=== PATIENT | female | born 1970 | race Caucasian/White ===

== ENCOUNTER 2019-01-22 13:44 | Outpatient (REF) | payer OTHER, SELFPAY ==
[2019-01-22 20:34] LABS: Anion Gap 9.8 mmol/L (3-11); BUN 15 mg/dL (7-18); CO2 24.2 mmol/L (21.0-32.0); CREATININE 0.74 mg/dL (0.55-1.02); Calcium 8.4 mg/dL (8.5-10.1); Calculated LDL 73 mg/dL; Chloride 106 mmol/L (98-107); Cholesterol 154 mg/dL (50-200); Glucose 96 mg/dL (70-100); HDL Cholesterol 44 mg/dL (40-60); Potassium 4.2 mmol/L (3.5-5.1); Sodium 140 mmol/L (136-145); Triglyceride 185 mg/dL (30-150)
== END 2019-01-22 14:04 ==
LOC: NCHCN 13:44
PROVIDERS: PCP Specialist/Technologist Athletic Trainer; Visit Provider Specialist/Technologist Athletic Trainer
DX: Z00.00 Encounter for general adult medical examination without abnormal findings (principal); I10 Essential (primary) hypertension
CPT/HCPCS: 80048; 80061; 83721

== ENCOUNTER 2019-04-12 17:05 | Emergency (ER) | payer OTHER, SELFPAY ==
[2019-04-12 17:16] VITALS: BP 113/58; PULSE 64; RESP 18; TEMP 36.7; O2SAT 95
--- NOTE | 2019-04-12 17:34 | DI.RAD_ITS ---
EXAM: XR KNEE LT 4V AP,LAT,KENYON,PAT INDICATION: posterior pain. COMPARISON: No exams were available for comparison TECHNIQUE: 2D digital imaging was performed. FINDINGS: Five views were obtained. There is a prominent enthesophyte of the superior pole of the patella. Sl ight marginal osteophyte formation noted at multiple sites. No evidence of acute fracture. IMPRESSION:
--- NOTE | 2019-04-12 17:34 | ED.GENADUL_ITS ---
Discharge Plan Disposition Patient Disposition: HOME Condition: Improving Discharge Details Chief Complaint: Orthopedic Clinical Impression: Knee strain Primary Care Provider: Nico Lord ED Provider: Omer Bowers Home Meds and New Rx's Prescriptions: No Action zolpidem [Ambien] 10 MG tablet 10 mg PO 1/2 TO 1 TAB QHS PRN RF: 0 cetirizine [Zyrtec] 10 MG tablet,chewable 10 mg PO DAILY RF: 0 lamotrigine 200 MG tablet 200 mg PO BID Qty: 180 RF: 3 lisinopril 5 MG tablet 10 mg PO DAILY RF: 0 naproxen sodium [Aleve] 220 MG capsule 220 mg PO PRN RF: 0 Discharge Instructions Instructions: Swollen Knee Joint (ED) Additional Instructions: Remove Tico bandage at bedtime. Wear Tico bandage daily for 5 to 7 days time. Apply ice to reduce discomfort. You may use ibuprofen/naproxen as needed for discomfort Follow-up in clinic on Friday for recheck and less completely improved. Return at any time for reevaluation. Medical Decision Making 48-year female presents with the insidious onset of aching left posterior knee pain over 1 week's time. Says it was worse with walking, improved with rest. Denies chest pain or shortness of breath. No swelling. No prolonged immobilization. Her exam is reassuring and notable only for mild tenderness in the posterior knee. No laxity or instability. No effusion appreciated. Referred for x-ray which does reveal slight marginal osteophyte formation noted at multiple sites. Discussed with patient that is likely a mild arthritic/strain of the knee. We will treat with compression with Tico bandage. She has a follow-up this coming Friday for recheck in the office. If not improving would consider outpatient ultrasound. Stable for discharge at this time. HPI General Mode of arrival: ambulatory . Date/Time Provider Initiated Documentation: 04/12/19 17:26 . Limitations to Documentation: no limitations . Information obtained by: patient . History of Present Illness 48 year old F presents to the emergency department with the chief complaint of Left knee pain for 1 week, described as moderate, Quality is described as dull, and is localized to the left and lower extremity. Rest improves symptom(s), Movement worsens symptoms . Patient notes no other symptoms.. Patient did receive the following treatments prior to arrival, none Related Data Home Medications Medication Instructions Recorded Confirmed cetirizine [Zyrtec] 10 mg PO DAILY tab-cap 05/17/14 04/12/19 zolpidem [Ambien] 10 mg PO 1/2 TO 1 TAB QHS PRN 05/17/14 04/12/19 tab-cap lamotrigine 200 mg PO BID #180 tab-cap 05/23/14 04/12/19 lisinopril 10 mg PO DAILY tab-cap 04/17/16 04/12/19 naproxen sodium [Aleve] 220 mg PO PRN 04/17/16 04/12/19 Allergies Allergy/AdvReac Type Severity Reaction Status Date / Time No Known Allergies Allergy Unverified 04/12/19 17:23 General Stated Complaint: Orthopedic HAL: 4 Review of Systems Review of Systems Narrative: 6 systems reviewed and otherwise negative [facility] Social History Smoking/Tobacco Use Status: Former Tobacco Use Alcohol Intake: current Alcohol Intake frequency: holidays/special occasions only Drug use: Occasionally Substance use type: marijuana Household members: children Number of Children: 1 Seatbelt use: always Do you feel safe at home: Yes Do you feel safe in your relationship?: Yes History History 2 Para Hx # Term Pregnancies 1 Multiple births Hx # Pregnancies Ectopic pregnancies AB induced Hx Number of Living Children AB spontaneous Exam Narrative Exam Narrative: GEN: awake, alert, oriented 3. Pleasant, well groomed, interactive. HEAD: Normocephalic, atraumatic ENT: Mucous membranes moist, oropharynx unremarkable, External ear exam unrem arkable EYES: PERRL, EOMI EXT: Full ROM, mild tenderness left posterior knee. Full range of motion, motor 5 out of 5, sensation intact throughout. No mass or cords appreciated Neuro: Grossly normal neurologic exam, conversant, interactive. Psych: Speech fluent, thoughts congruent, affect normal Course Vital Signs Vital signs: Vital Signs Temperature 36.7 C 04/12/19 17:16 Pulse 64 04/12/19 17:16 Respiratory Rate 18 04/12/19 17:16 Blood Pressure 113/58 L 04/12/19 17:16 Pulse Oximetry 95 04/12/19 17:16 Temperature 36.7 C 04/12/19 17:16 Temperature Source Skin 04/12/19 17:16 Pulse 64 04/12/19 17:16 Respiratory Rate 18 04/12/19 17:16 Respiratory Effort 04/12/19 17:24 Blood Pressure 113/58 L 04/12/19 17:16 Blood Pressure Position Sitting 04/12/19 17:16 Pulse Oximetry 95 04/12/19 17:16 Oxygen Delivery Method Room Air 04/12/19 17:16 Oxygen Flow Rate 0 04/12/19 17:16 Pain Level 6 04/12/19 17:16 Comment pain worse after sitting for a while 04/12/19 17:16
[2019-04-12 18:24] VITALS: BP 113/58; PULSE 64; RESP 18; TEMP 36.7; O2SAT 95
== END 2019-04-12 18:25 | disposition home or self-care (01) ==
PROVIDERS: Emergency Provider Emergency Medicine; PCP Specialist/Technologist Athletic Trainer
DX: S86.212A Strain of muscle(s) and tendon(s) of anterior muscle group at lower leg level, left leg, initial encounter (principal); X58.XXXA Exposure to other specified factors, initial encounter
CPT/HCPCS: 81025; 99283; 73564; 99282

== ENCOUNTER 2019-04-26 10:11 | Emergency (ER) | payer OTHER, SELFPAY ==
[2019-04-26 10:17] VITALS: BP 121/76; PULSE 89; RESP 18; TEMP 36.6; O2SAT 99
--- NOTE | 2019-04-26 10:34 | ED.GENADUL_ITS ---
Discharge Plan Disposition Patient Disposition: HOME Condition: Stable Discharge Details Chief Complaint: Orthopedic Clinical Impression: Strain of left knee Primary Care Provider: Nico Lord ED Provider: Braeden Amaya Home Meds and New Rx's Prescriptions: New prednisone 20 mg tablet 60 mg PO DAILY Qty: 15 RF: 0 Continued zolpidem [Ambien] 10 MG tablet 10 mg PO 1/2 TO 1 TAB QHS PRN RF: 0 cetirizine [Zyrtec] 10 MG tablet,chewable 10 mg PO DAILY RF: 0 lamotrigine 200 MG tablet 200 mg PO BID Qty: 180 RF: 3 lisinopril 5 MG tablet 10 mg PO DAILY RF: 0 naproxen sodium [Aleve] 220 MG capsule 220 mg PO PRN RF: 0 Discharge Instructions Additional Instructions: take 1000mg tylenol and 600mg ibuprofen every 6 hours for pain as needed if you develop fevers, or the joint becomes red and warm to touch return to the emergency department call the orthopedics office to arrange for an appointment Referrals: Khoi France MD [ [facility] STAFF PHYSICIAN] - Medical Decision Making 48 yo female comes in with continued non traumatic left knee pain. Was seen here earlier this month with negative xays and is going to be getting an MRI and Pt in the coming weeks. She comes in with continued pain, denies fevers or rashes. She has pain over the anterior and medial knee without any swelling or warmth, no findings to suggest septic joint.No calf pain or leg swelling so doubt dvt. She does have full rom and can bare weight though with pain. Given no trauma do not feel xrays indicated as unlikely fracture. could be arthritis vs strain, will have her start steroids and she has a knee brace coming tomorrow per pt. Will also refer to ortho for eval and she was given return precautions for se ptic joint Differential Diagnosis Differential Diagnosis: strain, arthritis, bursitis HPI General Mode of arrival: ambulatory . Date/Time Provider Initiated Documentation: 04/26/19 10:13 . Limitations to Documentation: no limitations . Information obtained by: patient . History of Present Illness 48 year old F presents to the emergency department with the chief complaint of left knee pain, described as moderate, Quality is described as aching, and is localized to the left and lower extremity. Patient reports no radiation. Patient started experiencing this week(s) (2) and it has been constant. Patient notes no other symptoms.. Related Data Home Medications Medication Instructions Recorded Confirmed cetirizine [Zyrtec] 10 mg PO DAILY tab-cap 05/17/14 04/26/19 zolpidem [Ambien] 10 mg PO 1/2 TO 1 TAB QHS PRN 05/17/14 04/26/19 tab-cap lamotrigine 200 mg PO BID #180 tab-cap 05/23/14 04/26/19 lisinopril 10 mg PO DAILY tab-cap 04/17/16 04/26/19 naproxen sodium [Aleve] 220 mg PO PRN 04/17/16 04/26/19 prednisone 60 mg PO DAILY #15 tab 04/26/19 Previous Rx's Medication Instructions Recorded prednisone 60 mg PO DAILY #15 tab 04/26/19 Allergies Allergy/AdvReac Type Severity Reaction Status Date / Time No Known Allergies Allergy Unverified 04/26/19 10:26 General Stated Complaint: Orthopedic HAL: 4 Review of Systems Review of Systems ROS Unobtainable: All systems reviewed & are unremarkable except as noted in HPI and below Constitutional Constitutional: Denies chills and Denies fever(s) Cardiovascular Cardiovascular: Denies chest pain and Denies dyspnea Respiratory Respiratory: Denies cough and Denies dyspnea Gastrointestinal Gastrointestinal: Denies abdominal pain, Denies nausea and Denies vomiting Musculoskeletal Musculoskeletal: Denies joint swelling Psychiatric Psychiatric: Denies depression Allergic/Immunologic Allergic/Immunologic: Denies urticaria PFSH Social History Smoking/Tobacco Use Status: Former Tobacco Use Alcohol Intake: current Alcohol Intake frequency: holidays/special occasions only Drug use: Occasionally Substance use type: marijuana Household members: children Number of Children: 1 Seatbelt use: always Do you feel safe at home: Yes Do you feel safe in your relationship?: Yes History History 2 Para Hx # Term Pregnancies 1 Multiple births Hx # Pregnancies Ectopic pregnancies AB induced Hx Number of Living Children AB spontaneous Exam Const General: no acute distress Orientation: alert HENMT Head: normal to inspection Ears: external ears normal General nose exam: external nose normal Mouth: moist mucous membranes Eyes General: appearance normal, both eyes and all related structures Neck Neck: normal visual inspection Resp Effort & Inspection: normal respiratory effort and able to speak in complete sentences Cardio Rate: regular rate Skin General skin exam: no rashes or lesions noted Neuro General: alert and oriented x3 Extrem General: normal to inspection Psych Mental Status: mental status grossly normal Course Vital Signs Vital signs: Vital Signs Temperature 36.6 C 04/26/19 10:17 Pulse 89 04/26/19 10:17 Respiratory Rate 18 04/26/19 10:17 Blood Pressure 121/76 04/26/19 10:17 Pulse Oximetry 99 04/26/19 10:17 Temperature 36.6 C 04/26/19 10:17 Pulse 89 04/26/19 10:17 Respiratory Rate 18 04/26/19 10:17 Respiratory Effort Non-Labored 04/26/19 10:17 Blood Pressure 121/76 04/26/19 10:17 Pulse Oximetry 99 04/26/19 10:17 Oxygen Delivery Method Room Air 04/26/19 10:17 Oxygen Flow Rate 0 04/26/19 10:17 Pain Level 9 04/26/19 10:29 Comment 04/26/19 10:17
[2019-04-26] MEDS: predniSONE 20 MG TAB 60 MG PO (10:38)
== END 2019-04-26 10:56 | disposition home or self-care (01) ==
LOC: ER 10:39
PROVIDERS: Emergency Provider Emergency Medicine; PCP Specialist/Technologist Athletic Trainer
DX: S76.912A Strain of unspecified muscles, fascia and tendons at thigh level, left thigh, initial encounter (principal); X58.XXXA Exposure to other specified factors, initial encounter
CPT/HCPCS: 99282; J7512

== ENCOUNTER → 2019-06-24 12:41 | Outpatient (CLI) | payer OTHER, SELFPAY ==
--- NOTE | 2019-06-24 14:05 | DI.RAD_ITS ---
EXAM: XR KNEE RT 3V AP,LAT,KENYON CLINICAL HISTORY: RT KNEE PAIN, M25.561 TECHNIQUE: COMPARISON: XR KNEE LT 4V AP,LAT,KENYON,PAT from 04/12/2019 FINDINGS: Four views were obtained. the cartilaginous joint spaces of tibiofemoral joints appear fairly well maintained. There are marginal osteophytes most prominent involving the patellofemoral joint. No ot her significant bony abnormality seen. IMPRESSION:
== END ==
PROVIDERS: PCP Specialist/Technologist Athletic Trainer; Visit Provider Specialist/Technologist Athletic Trainer
DX: M25.561 Pain in right knee (principal); M25.761 Osteophyte, right knee
CPT/HCPCS: 73562

== ENCOUNTER 2020-10-23 15:50 | Outpatient (REF) | payer OTHER, SELFPAY ==
[2020-10-23 19:16] LABS: Hemoglobin A1C 5.4 % (<5.7)
== END 2020-10-23 15:51 | disposition home or self-care (01) ==
LOC: NCHCN 15:50
PROVIDERS: PCP Specialist/Technologist Athletic Trainer; Visit Provider Nurse Practitioner Family
DX: R73.03 Prediabetes (principal)
CPT/HCPCS: 83036

== ENCOUNTER 2021-01-11 14:53 | Outpatient (REF) | payer OTHER, SELFPAY ==
[2021-01-11 19:33] LABS: Anion Gap 9.3 mmol/L (3-11); BUN 11 mg/dL (7-18); CO2 26.7 mmol/L (21.0-32.0); CREATININE 0.9 mg/dL (0.55-1.02); Calcium 8.9 mg/dL (8.5-10.1); Chloride 105 mmol/L (98-107); Glucose 86 mg/dL (74-106); Potassium 4.6 mmol/L (3.5-5.1); Sodium 141 mmol/L (136-145)
[2021-01-11 20:00] LABS: Vitamin D 25 Total 12.6 ng/mL (30-100)
[2021-01-15 13:02] LABS: Hepatitis C Ab w Rflx HCV PCR Negative (Negative)
[2021-01-15 14:07] LABS: HIV-1/2 Ag & Ab Screen Negative (Negative)
== END 2021-01-11 14:54 | disposition home or self-care (01) ==
LOC: NCHCN 14:53
PROVIDERS: PCP Specialist/Technologist Athletic Trainer; Visit Provider Nurse Practitioner Family
DX: Z00.00 Encounter for general adult medical examination without abnormal findings (principal); Z51.81 Encounter for therapeutic drug level monitoring; I10 Essential (primary) hypertension; F32.9 Major depressive disorder, single episode, unspecified; Z68.42 Body mass index [BMI] 45.0-49.9, adult
CPT/HCPCS: 80048; 82306; 86803; 87389

== ENCOUNTER 2021-02-16 11:21 | Outpatient (REF) | payer OTHER, SELFPAY ==
--- NOTE | 2021-02-16 10:30 | PAPFT_PTH ---
PATIENT: Sarina Gregory LOC: [facility] U#:[id number] AGE/SX: 50/F ROOM: RE02/16/[address]: Dora Mckeon : 1970 BED: DIS: 02/16/2021 SPEC #: [id number] RECD: 02/16/21 16:47 STATUS: ORAL REQ #: [id number] SEPIDEH: 02/16/21 10:[address]: Dora Mckeon DEPT: [facility] Cytology RECD BY: Cuca Dixon ENTERED: 02/16/21 16:47 SP TYPE: PAPFT OTHR DR: Nico Lord Tissues: 1 - CX/ENDOCX FOR PAP SMEARS Procedures: PAP THIN PREP/UVM Screening Comments: [id number] (CHLAMYDIA/GC) (UNSATISFACTORY FOR EVALUATION)
[2021-02-19 15:33] LABS: Chlamydia Result Negative (Negative); GC Result Negative (Negative)
== END 2021-02-16 11:22 | disposition home or self-care (01) ==
LOC: LBN 11:21
PROVIDERS: PCP Specialist/Technologist Athletic Trainer; Visit Provider Nurse Practitioner Family
DX: Z11.3 Encounter for screening for infections with a predominantly sexual mode of transmission (principal); Z12.4 Encounter for screening for malignant neoplasm of cervix; R87.615 Unsatisfactory cytologic smear of cervix; Z01.419 Encounter for gynecological examination (general) (routine) without abnormal findings
CPT/HCPCS: 87491; 87591; 88142

== ENCOUNTER 2021-02-20 02:20 | Outpatient (CLI) | payer OTHER, SELFPAY ==
--- NOTE | 2021-02-20 | DI.US_ITS ---
Exam(s) US BREAST RT LIMITED MG MAMMO DIAGNOSTIC BI EXAM: MG MAMMO DIAGNOSTIC BI CLINICAL HISTORY: DIAGNOSTIC, RT BREAST LUMP, N63.0 TECHNIQUE: Mammograms were interpreted according to the usual protocol including computer analysis w ith CAD system, tomosynthesis and C-view imaging. COMPARISON: FINDINGS: Bilateral mammogram right breast ultrasound are interpreted conjunction. The patient reports questio n of a palpable area of abnormality in the lower inner quadrant of the right breast. The breasts are heterogeneously dense. No dominant mass or clumped microcalcification is identified in either breast. The current examination is compared with previous mammogram of January 2018 and there has been no gross interval change in appearance since that time. Breast ultrasound of the lower inner quadrant of the right breast shows no evidence of a mass or cyst . IMPRESSION: No specific evidence of malignancy at this time. Routine screening examinations are suggested at yea rly intervals in this age group according to the ACS ACR guidelines. BI-RADS Category 1 - Negative Breast Density - Category C - Heterogeneously dense
== END 2021-02-20 02:40 ==
PROVIDERS: PCP Specialist/Technologist Athletic Trainer; Visit Provider Nurse Practitioner Family
DX: N63.10 Unspecified lump in the right breast, unspecified quadrant (principal); R92.8 Other abnormal and inconclusive findings on diagnostic imaging of breast
CPT/HCPCS: 76642; 77062; 77066; G0279

== ENCOUNTER 2021-05-17 18:17 | Outpatient (REF) | payer OTHER, SELFPAY ==
--- NOTE | 2021-05-17 15:45 | PAPFT_PTH ---
PATIENT: Sarina Gregory LOC: [facility]#:[id number] AGE/SX: 50/F ROOM: RE05/17/[address]: Dora Mckeon : 1970 BED: DIS: 05/17/2021 SPEC #: [id number] RECD: 05/18/21 12:58 STATUS: ORAL REQ #: [id number] SEPIDEH: 05/17/21 15:[address]: Dora Mckeon DEPT: [facility] Cytology RECD BY: Cuca Dixon ENTERED: 05/18/21 12:58 SP TYPE: PAPFT OTHR DR: Nico Lord Tissues: 1 - CX/ENDOCX FOR PAP SMEARS Procedures: PAP THIN PREP/UVM Screening HPV DNA PROBE Comments: [id number]
== END 2021-05-17 18:18 | disposition home or self-care (01) ==
LOC: NCHCN 18:17
PROVIDERS: PCP Specialist/Technologist Athletic Trainer; Visit Provider Nurse Practitioner Family
DX: Z12.4 Encounter for screening for malignant neoplasm of cervix (principal); Z11.51 Encounter for screening for human papillomavirus (HPV)
CPT/HCPCS: 88142; 87624

== ENCOUNTER 2021-05-25 14:59 | Outpatient (REF) | payer OTHER, SELFPAY ==
[2021-05-26 13:09] LABS: Lamotrigine 2.9 mcg/mL (2.5 - 15.0)
[2021-05-28 02:53] LABS: Vitamin D 25 Total 46.2 ng/mL (30-100)
== END 2021-05-25 15:00 | disposition home or self-care (01) ==
LOC: NCHCN 14:59
PROVIDERS: PCP Specialist/Technologist Athletic Trainer; Visit Provider Nurse Practitioner Family
DX: R56.9 Unspecified convulsions (principal); E55.9 Vitamin D deficiency, unspecified; Z51.81 Encounter for therapeutic drug level monitoring
CPT/HCPCS: 80175; 82306

== ENCOUNTER 2023-02-20 17:41 | Outpatient (REF) | payer OTHER, SELFPAY ==
[2023-02-20 19:52] LABS: Bacteria Few HPF (Negative); C & S Indicated? C&S Done As Ordered; Casts Negative LPF (Negative); Crystals Moderate Amorphous HPF (Negative); Epithelial Cells Few HPF (Negative); Mucus Negative (Negative)
== END 2023-02-20 17:42 | disposition home or self-care (01) ==
LOC: NCHCN 17:41
PROVIDERS: PCP Nurse Practitioner Family; Visit Provider Nurse Practitioner Family
DX: N89.8 Other specified noninflammatory disorders of vagina (principal); R31.9 Hematuria, unspecified
CPT/HCPCS: 81015; 87086; 87480; 87510; 87660

== ENCOUNTER 2023-05-22 11:41 | Outpatient (REF) | payer OTHER, SELFPAY | END 2023-05-22 11:42 | disposition home or self-care (01) | LOC: LBN 11:41 | PROVIDERS: PCP Nurse Practitioner Family; Visit Provider Nurse Practitioner Family | DX: N89.8 Other specified noninflammatory disorders of vagina (principal) | CPT/HCPCS: 87480; 87510; 87660 ==

== ENCOUNTER 2023-06-13 16:05 | Outpatient (REF) | payer OTHER, SELFPAY ==
[2023-06-13 15:08] LABS: Abs Immature Grans 0.04 10^3/uL (0.0-0.06); Absolute Basophil Count 0.04 10^3/uL (0.0-0.2); Absolute Lymphocyte Count 2.64 10^3/uL (1.2-3.4); Absolute Monocyte Count 0.85 10^3/uL (0.1-0.8); Absolute Neutrophil Count 5.45 10^3/uL (1.2-6.7); Basophils % 0.4; Eosinophils % 1.1; HCT 41.3 % (36.0-46.0); HGB 13.8 g/dL (11.2-15.7); Immature Grans % 0.4; Lymphocytes % 28.9; MCH 30.7 pg (27.0-33.0); MCHC 33.4 % (32.0-36.0); MCV 92 fL (80-95); MPV 9.9 fL (8.0-11.0); Monocytes % 9.3; Neutrophils % 59.9; Platelet Count 347 10^3/uL (130-400); RDW 12.3 % (11.7-14.6); RDW-SD 41.4 fL; WBC 9.12 10^3/uL (4.4-10.8)
[2023-06-13 22:33] LABS: HIV-1/2 Ag & Ab Screen Negative (Negative)
[2023-06-14 00:30] LABS: Hepatitis C Ab w Rflx HCV PCR Negative (Negative)
[2023-06-14 14:14] LABS: Chlamydia Result Negative (Negative); GC Result Negative (Negative)
[2023-06-16 11:29] LABS: Syphilis Serology (RPR) Negative (Negative)
== END 2023-06-13 16:06 | disposition home or self-care (01) ==
LOC: NCHCN 16:05
PROVIDERS: PCP Nurse Practitioner Family; Visit Provider Nurse Practitioner Family
DX: Z20.2 Contact with and (suspected) exposure to infections with a predominantly sexual mode of transmission (principal); N92.0 Excessive and frequent menstruation with regular cycle
CPT/HCPCS: 86803; 87389; 87491; 87591; 85025; 86592; 87480; 87510; 87660

== ENCOUNTER 2023-09-01 04:06 | Outpatient (CLI) | payer OTHER, SELFPAY ==
[2023-09-01 13:48] LABS: HCT 39.6 % (36.0-46.0); HGB 13.8 g/dL (11.2-15.7); MCH 31.6 pg (27.0-33.0); MCHC 34.8 % (32.0-36.0); MCV 91 fL (80-95); MPV 9.8 fL (8.0-11.0); Platelet Count 298 10^3/uL (130-400); RBC 4.37 10^6/uL (3.93-5.22); RDW 12.6 % (11.7-14.6); RDW-SD 41.7 fL; WBC 10.09 10^3/uL (4.4-10.8)
== END 2023-09-01 04:07 | disposition home or self-care (01) ==
LOC: LBO 04:06
PROVIDERS: PCP Nurse Practitioner Family; Visit Provider Obstetrics & Gynecology
DX: Z01.818 Encounter for other preprocedural examination (principal)
CPT/HCPCS: 36415; 85027; 86850; 86900; 86901

== ENCOUNTER 2023-09-03 08:29 | Day surgery (SDC) | payer OTHER, SELFPAY ==
[2023-09-03] VITALS (8 sets, daily range): BP systolic 106–133; BP diastolic 49–75; PULSE 76–94; RESP 17–24; TEMP 36.2–36.7; O2SAT 93–96; BMI 51.0
--- NOTE | 2023-09-03 09:16 | W.ANESPRE ---
General Info Date of Service Date Performed: 09/03/23 Height: 5 ft 3.5 in Weight: 132.903 kg Body Mass Index (BMI): 51.0 Surgical Procedure: Operation Date: 09/03/23 09:10 Proposed Procedure Side Surgeon p Dilation & Curettage with Hysteroscopy, Myosure Annie Fields DO Meds Allergies and Home Medications Allergies Allergy/AdvReac Type Severity Reaction Status Date / Time No Known Allergies Allergy Verified 09/03/23 09:14 Home Medication Medication Instructions Recorded cetirizine 10 mg chewable tablet 10 mg PO DAILY 05/17/14 (Zyrtec) lamotrigine 200 mg tablet 200 mg PO BID #180 tab-caps 05/23/14 lisinopril 5 mg tablet 10 mg PO DAILY 04/17/16 naproxen sodium 220 mg capsule 220 mg PO PRN 04/17/16 (Aleve) mupirocin 2 % topical ointment 1 applic topical BID 02/06/21 cholecalciferol (vitamin D3) 25 25 mcg PO DAILY 08/12/22 mcg (1,000 unit) capsule [id number] 3.5 4 drp otic (ear) TID 10 days #10 mL 09/17/22 mg-10,000 unit/mL-1 % ear drops,susp Current Visit Medications: Current Medications Generic Name Dose Route Start Last Admin Trade Name Freq PRN Reason Stop Dose Admin Ringer's Solution 1,000 mls @ 125 mls/hr 09/03/23 06:00 IV 09/03/23 23:59 INFUSION JEANETTE IV Miscellaneous Supplies 1 each 09/03/23 06:00 Iv Access IV 09/03/23 23:59 DIRECTED JEANETTE Sodium Chloride 0 ml 09/03/23 06:00 Normal Saline Flush 10 Ml Syr IV 09/03/23 23:59 PRN PRN Sodium Chloride 0 ml 09/03/23 06:00 Normal Saline 10 Ml Vial IJ 09/03/23 23:59 DIRECTED PRN Sterile Water 0 ml 09/03/23 06:00 Water,Injection,Sterile 10 Ml Vial IJ 09/03/23 23:59 DIRECTED PRN PFSH Active Problems Active Problems: Problem Status Onset Code Fluid in endometrial cavity N85.9 Morbid obesity E66.01 Retraction pocket of tympanic membrane of right ear H73.891 Otitis externa of right ear H60.91 Screening for colon cancer Z12.11 Seizure disorder G40.909 Medical History Medical History (Updated 09/01/23 @ 15:29 by Annie Fields DO) Epilepsy Medication controlled f/u with PCP. Dx 2006. Last seizure: ~5 years Preventative health care Screening mammogram for breast cancer Vitamin D deficiency Heavy menstrual bleeding Screening for cervical cancer History of COVID-19 Shoulder pain, right Skin lesion of face Chronic pain of both ears Adult BMI 45.0-49.9 kg/sq m History of depression Allergic rhinitis Cystocele Hypertension Medication monitoring encounter Urinary incontinence Bladder prolapse Sleep apnea History of prediabetes Cyst Knee pain, right Sleep disorder Rash, skin Irregular menstruation Tender nose Breast lump Impacted cerumen of right ear Internal derangement of left knee Stiffness of left knee Chondromalacia patellae of left knee Abnormal uterine bleeding Tobacco Smoking/Tobacco Use Status: Current-Occasional Tobacco Type: cigarettes Alcohol Alcohol Intake: current Alcohol intake frequency: holidays/special occasions only Substance Use Substance use: Occasionally Substance use type: marijuana Prental History History 2 Para Hx # Term Pregnancies 1 Multiple births Hx # Pregnancies Ectopic pregnancies AB induced Hx Number of Living Children AB spontaneous Vital Signs and Lab Results Lab Results Blood Type / Crossmatch: Patient ABO/Rh O Positive 09/01/23 Antibody Screen NEGATIVE 09/01/23 Complete Blood Count: White Blood Count 10.09 10^3/uL (4.4-10.8) 09/01/23 13:37 Red Blood Count 4.37 10^6/uL (3.93-5.22) 09/01/23 13:37 Hemoglobin 13.8 g/dL (11.2-15.7) 09/01/23 13:37 Hematocrit 39.6 % (36.0-46.0) 09/01/23 13:37 Platelet Count 298 10^3/uL (130-400) 09/01/23 13:37 Complete Metabolic Panel: No Data to Display Liver Function Panel: No Data to Display Coagulation Panel: No Data to Display Cardiac Panel: No Data to Display Arterial Blood Gas: No Data to Display Venous Blood Gas: No Data to Display Pancreas Panel: No Data to Display Thyroid Panel: No Data to Display Infectious Disease: No Data to Display Blood Cultures: No Data to Display Toxicology Panel: No Data to Display Panel: No Data to Display Anesthesia Assessment and Plan Anesthesia History Personal History: No History of General Anesthesia Family History: No Family History of Anesthesia Complications Exercise Tolerance Exercise Tolerance: Metabolic Equivalents>4 Pertinent Negatives Pertinent Negatives: No Symptoms of GERD, No Major Cardiovascular Symptoms or Complaints, No Major Pulmonary Symptoms or Complaints and No History of CVA/TIA Cardiac & Pulmonary Exam Cardiac Exam: Normal S1/S2 Heart Sounds Pulmonary Exam: Clear Bilateral Breath Sounds Implantable Cardiac Device Does patient have a Pacemaker or an ICD?: No Airway Exam Known Difficult Airway: No Mallampati Class: 3 Mouth Opening: Normal (> 3cm) Thyromental Distance: Less than 3 cm Neck Range of Motion: Full ROM Neck Circumference: Thick Teeth Condition: Normal Dentition ASA Classification ASA Score: ASA 3 Emergency Case?: No NPO Status NPO Status: NPO Clears >2 hours, Solids >8 hours Status Status: Negative HCG Anesthesia Plan Resuscitation Status: Full Code Anesthesia Technique: General Anesthesia Airway Planned: Natural Airway Monitors Used: Standard Monitors Preoperative Comments:: pt reports not feeling hungry this am but denies any other s/s of reflux and denies s/s of reflux this am
[2023-09-03] MEDS: Lactated Ringers 1,000 ML 125 ML IV (09:18)
--- NOTE | 2023-09-03 10:28 | ENDO_PTH ---
PATIENT: Sarina Gregory LOC: [facility] U#:[id number] AGE/SX: 53/F ROOM: RE09/03/[address]: Annie Fields DO : 1970 BED: DIS: 09/03/2023 SPEC #: [id number] RECD: 09/03/23 12:49 STATUS: ORAL RE #: [id number] SEPIDEH: 09/03/23 10:[address]: Annie Fields DEPT: Surgical Specimen RECD BY: Cuca Dixon ENTERED: 09/03/23 12:50 SP TYPE: Endo OTHR DR: Dora Mckeon Tissues: 1 - ENDOCERVICAL BX/CURRETTE 2 - ENDOMETRIUM BX/CURRETTE Procedures: GROSS AND MICRO LEVEL 4 IMMUNOPEROXIDASE STAIN Comments: [id number]
[2023-09-03] MEDS: Silver Nitrate Stick 1 EACH (10:30)
--- NOTE | 2023-09-03 10:43 | ROE_ITS ---
Date of service: 09/03/23 Time of Service: 10:43 Operative Note Operative Note DATE OF PROCEDURE: 09/03/23 PRE-OP DIAGNOSIS: Thickened endometrium, endometrial fluid collection POST-OP DIAGNOSIS: same ([place] endometrium and marked mucus within the endometrial canal) PROCEDURE: Hysteroscopy with dilation and curettage, fractional. SURGEON: Annie Fields ANESTHESIA TYPE: General LMA/ETT Refer to Anesthesia Record ESTIMATED BLOOD LOSS: 20 PATHOLOGY: other (1. Endocervical curettage 2. Endometrial curettage) COMPLICATIONS: None Patient was transported to: PACU Indications: Thickened endometrium, heavy menstrual bleeding, endometrial fluid collection. Findings: Copious mucoid fluid collection within the endometrium. Diffuse, plush, irregular endometrial lining. Procedure Description: After full informed consent was obtained, patient was taken the operating suite with an IV running. She was placed in the dorsal supine position after endotracheal intubation performed for the administration of general anesthesia with ease. She was prepped and draped in the usual sterile fashion. Pneumatic compression stockings were placed for DVT prophylaxis. There was no indication for preoperative antibiotic therapy. Exam under anesthesia revealed a uterus that was midline and mobile, though somewhat limited due to body habitus. At this point a speculum was inserted into the vaginal vault and a single-tooth tenaculum used to grasp the anterior lip of the cervix. Cervical os dilated to the point that a 4 mm hysteroscope could be passed without difficulty. As of note, with endocervical dilation there was copious mucoid discharge and drainage, clear in nature. With instillation of normal saline hysteroscopy was performed. There is noted to be plush, irregular endometrium without discrete polypoid structure for removal. At this point, fractional curettage was performed beginning with endocervical curettage, followed by endometrial curettage. Both specimens were sent separately. Upon completion of the dilation and curettage, fluid deficit was 0. Tenaculum was removed. Puncture sites were nonhemostatic and pressure was held, and cauterized with silver nitrate. This achieved hemostasis and the speculum was removed. She was returned to the dorsal supine position and woke from anesthesia with ease. She was taken the postanesthesia care unit in stable condition. Complications: None apparent Fluids: Crystalloid per anesthesia Pathology: 1. Endocervical curettage 2. Endometrial curettage EBL: 20 mL. Findings: Marked mucoid fluid collection within the endometrial cavity, and irregular, plush endometrium without discrete polypoid lesion. My suspicion would be for an underlying abnormal endometrial process which might be a mucinous adenocarcinoma versus clear cell carcinoma, versus benign hyperplasia. Will await pathology.
--- NOTE | 2023-09-03 11:44 | W.ANESPOSTOP ---
Postoperative Evaluation Date, Time and Location Date Performed: 09/03/23 Time Performed: 11:40 Patient Location: Day Surgery Unit Vital Signs Most Recent Imported Vital Signs: Most Recent Vital Signs Temp Pulse Resp BP Pulse Ox 36.2 C L 84 20 110/75 95 09/03/23 11:36 09/03/23 11:36 09/03/23 11:36 09/03/23 11:36 09/03/23 11:36 Pain Score Most Recent Pain Score: Most Recent Pain Score Pain Level 0 09/03/23 11:36 Assessment Mental Status: Awake (Alert & Oriented to Patient Baseline) Airway and Respiratory Function: Patent airway with normal (patient baseline) respiratory exam Cardiovascular Function: Hemodynamically Stable Hydration Status: Adequately Hydrated Nausea & Vomiting: No Nausea or Vomiting Pain: Pt. Denies Any Pain Peripheral Nerve Block: Patient did not receive a nerve block
== END 2023-09-03 13:03 | disposition home or self-care (01) ==
PROVIDERS: PCP Nurse Practitioner Family; Visit Provider Obstetrics & Gynecology
PROC: 0UDB8ZZ Extraction of Endometrium, Via Natural or Artificial Opening Endoscopic (ICD-10-PCS; CPT 58558; principal; 2023-09-03 09:00)
DX: N93.9 Abnormal uterine and vaginal bleeding, unspecified (principal); E66.01 Morbid (severe) obesity due to excess calories; Z68.43 Body mass index [BMI] 50.0-59.9, adult; R93.89 Abnormal findings on diagnostic imaging of other specified body structures
CPT/HCPCS: 58558; 88305; 88361; J1100; J1885; J2001; J2371; J2405; J2704

== ENCOUNTER 2024-07-01 13:59 | Outpatient (REF) | payer BC, SELFPAY ==
--- NOTE | 2024-07-01 14:15 | PAPFT_PTH ---
PATIENT: Sarina Gregory LOC: [facility]#:[id number] AGE/SX: 54/F ROOM: RE07/01/[address]: Dora Mckeon : 1970 BED: DIS: 07/01/2024 SPEC #: [id number] RECD: 07/02/24 13:21 STATUS: ORAL REQ #: [id number] SEPIDEH: 07/01/24 14:[address]: Dora Mckeon DEPT: [facility] Cytology RECD BY: Cuca Dixon Tissues: 1 - CX/ENDOCX FOR PAP SMEARS Procedures: PAP THIN PREP/UVM Screening HPV DNA PROBE Comments: [id number] (HPV 16 & 18/45) (CHLAMYDIA/GC)
[2024-07-01 14:51] LABS: Hemoglobin A1C 5.7 % (<5.7)
[2024-07-01 14:58] LABS: ALT 23 U/L (14-59); AST 21 U/L (15-37); Albumin 3.4 g/dL (3.4-5.0); Alkaline Phosphatase 121 U/L (46-116); Anion Gap 8.9 mmol/L (3-11); BUN 16 mg/dL (7-18); Bilirubin, Total 0.74 mg/dL (0.2-1.0); CO2 25.1 mmol/L (21.0-32.0); CREATININE 0.9 mg/dL (0.55-1.02); Calcium 9.1 mg/dL (8.5-10.1); Calculated LDL 85 mg/dL (<100); Chloride 105 mmol/L (98-107); Cholesterol 178 mg/dL (<200); Estimated GFR 76.44 (mL/min/1.73m2); Glucose 113 mg/dL (74-106); HDL Cholesterol 56 mg/dL (40-60); Potassium 4.3 mmol/L (3.5-5.1); Sodium 139 mmol/L (136-145); Total Protein 6.5 g/dL (6.4-8.2); Triglyceride 188 mg/dL (<150)
[2024-07-05 12:20] LABS: Chlamydia Result Negative (Negative); GC Result Negative (Negative)
== END 2024-07-01 14:00 | disposition home or self-care (01) ==
LOC: NCHCN 13:59
PROVIDERS: PCP Nurse Practitioner Family; Visit Provider Nurse Practitioner Family
DX: I10 Essential (primary) hypertension (principal); Z00.00 Encounter for general adult medical examination without abnormal findings; R73.03 Prediabetes; Z20.2 Contact with and (suspected) exposure to infections with a predominantly sexual mode of transmission; Z11.51 Encounter for screening for human papillomavirus (HPV); Z01.419 Encounter for gynecological examination (general) (routine) without abnormal findings; Z11.3 Encounter for screening for infections with a predominantly sexual mode of transmission
CPT/HCPCS: 80053; 80061; 87491; 87591; 88142; 83036; 87480; 87510; 87624; 87660